=== PATIENT | male | born 1940 | race African-American/Black ===

== ENCOUNTER 2017-07-25 16:31 | Inpatient (IN) | payer MEDICARE, MEDICAID ==
[~2017-07-25] VITALS: Ht 180.3 cm; Wt 105.7 kg
[2017-07-25 18:33] LABS: Basophils # (auto) 0.1 uL; Lymphocytes # (auto) 1.8 uL
[2017-07-25 18:36] LABS: Basophils % (auto) 0.5 % (0.0-2.0); Eosinophils # (auto) 0.2 uL; Eosinophils % (auto) 1.7 % (0.0-7.0); Hematocrit 18.8 % (41.0-53.0); Lymphocytes % (auto) 17.8 % (10.0-50.0); Mean Corpuscular Hemoglobin 19.5 pg (28.0-32.0); Mean Corpuscular Hgb Conc. 27.8 g/dL (32.0-36.0); Mean Corpuscular Volume 70.3 fL (80.0-100.0); Neutrophils # (auto) 6.9 uL; Nucleated Red Blood Cells % 0.4 %; Platelet Count (auto) 308 10^3/uL (140-450); Red Blood Cells 2.67 10^6/uL (4.5-5.90); Red Cell Distribution Width 18.7 % (11.8-14.3); White Blood Cell 9.9 10^3/uL (4.4-10.8)
[2017-07-25 18:48] LABS: Hemoglobin 5.2 g/dL (13.5-17.5)
[2017-07-25 19:04] LABS: Albumin 2.6 g/dL (3.4-5.0); BUN/Creatinine Ratio 19.3; Bilirubin, Total 0.4 mg/dL (0.2-1.0); Calcium 8.2 mg/dL (8.5-10.1); Magnesium 2.8 mg/dL (1.6-2.6); Potassium 4.5 mmol/L (3.5-5.1)
[2017-07-26] VITALS (12 sets, daily range): BP systolic 122–155; BP diastolic 35–110
[2017-07-26] MEDS: SODIUM CHLORIDE 0.9% 1,000 ML IV SCH ×2 (04:54→21:54)
[2017-07-26] MEDS ORDERED: ACETAMINOPHEN 325 MG TAB PO PRN (05:00)
[2017-07-26] MEDS ORDERED: PANTOPRAZOLE 40 MG/10 ML VIAL IV ONE (05:00)
[2017-07-26] MEDS ORDERED: ONDANSETRON HCL 4 MG/2 ML VIAL IV PRN (05:00)
[2017-07-26] MEDS ORDERED: NITROGLYCERIN 0.4 MG SL TAB SL PRN (05:00)
[2017-07-26] MEDS ORDERED: MORPHINE SULFATE 4 MG/ML SYR/VIAL IV PRN (05:00)
[2017-07-26] MEDS ORDERED: TEMAZEPAM 15 MG CAP PO PRN (05:00)
[2017-07-26] MEDS ORDERED: cloNIDine HCL 0.1 MG TAB PO PRN (06:30)
[2017-07-26 09:47] LABS: Hematocrit 24.6 % (41.0-53.0)
[2017-07-26 09:53] LABS: Hemoglobin 6.6 g/dL (13.5-17.5)
[2017-07-26] MEDS: METOPROLOL TARTRATE 25 MG TAB PO SCH ×2 (10:08→21:52)
[2017-07-26] MEDS: amLODIPine BESYLATE 5 MG TAB PO SCH (10:09)
[2017-07-27] VITALS: BP 126/65
[2017-07-27 06:03] LABS: Albumin 2.4 g/dL (3.4-5.0); Bilirubin, Total 1.4 mg/dL (0.2-1.0); Potassium 4.3 mmol/L (3.5-5.1); Total Protein 6.3 g/dL (6.4-8.2)
[2017-07-27 06:45] LABS: Eosinophils # (auto) 0.3 uL
[2017-07-27 06:46] LABS: Basophils # (auto) 0 uL; Basophils % (auto) 0.4 % (0.0-2.0); Eosinophils % (auto) 2.4 % (0.0-7.0); Hematocrit 29.5 % (41.0-53.0); Lymphocytes # (auto) 1.3 uL; Lymphocytes % (auto) 11.1 % (10.0-50.0); Mean Corpuscular Hemoglobin 23.3 pg (28.0-32.0); Mean Corpuscular Hgb Conc. 30.4 g/dL (32.0-36.0); Mean Corpuscular Volume 76.5 fL (80.0-100.0); Monocytes # (auto) 1.3 uL; Monocytes % (auto) 10.8 % (0.0-12.0); Neutrophils # (auto) 8.9 uL; Neutrophils % (auto) 75.3 % (37.0-80.0); Nucleated Red Blood Cells % 0.4 %; Platelet Count (auto) 214 10^3/uL (140-450); Red Blood Cells 3.86 10^6/uL (4.5-5.90); White Blood Cell 11.8 10^3/uL (4.4-10.8)
[2017-07-27 06:49] LABS: Red Cell Distribution Width 22.5 % (11.8-14.3)
[2017-07-27 08:00] VITALS: BP 150/78
[2017-07-27] MEDS: PANTOPRAZOLE 40 MG/10 ML VIAL IV SCH (11:48)
[2017-07-27] MEDS: amLODIPine BESYLATE 5 MG TAB PO SCH (11:49)
[2017-07-27] MEDS: METOPROLOL TARTRATE 25 MG TAB PO SCH ×2 (11:49→21:40)
[2017-07-27 12:00] VITALS: BP 148/72
[2017-07-27] MEDS: SODIUM CHLORIDE 0.9% 1,000 ML IV SCH (14:23)
[2017-07-27 16:00] VITALS: BP 141/88
[2017-07-27 19:54] VITALS: BP 125/65
[2017-07-28] VITALS: BP 130/73
[2017-07-28] MEDS: HYDROcodone-ACET 5/325MG TAB PO PRN ×2 (00:08→21:46)
[2017-07-28 05:49] LABS: Basophils # (auto) 0.1 uL; Basophils % (auto) 0.5 % (0.0-2.0); Eosinophils # (auto) 0.3 uL; Lymphocytes # (auto) 1.4 uL; Nucleated Red Blood Cells % 0.1 %
[2017-07-28 05:52] LABS: Eosinophils % (auto) 2.3 % (0.0-7.0); Hematocrit 27.5 % (41.0-53.0); Hemoglobin 8.6 g/dL (13.5-17.5); Lymphocytes % (auto) 12.2 % (10.0-50.0); Mean Corpuscular Hemoglobin 23.8 pg (28.0-32.0); Mean Corpuscular Hgb Conc. 31.4 g/dL (32.0-36.0); Monocytes # (auto) 1.4 uL; Monocytes % (auto) 12.1 % (0.0-12.0); Neutrophils # (auto) 8.6 uL; Neutrophils % (auto) 72.9 % (37.0-80.0); Platelet Count (auto) 209 10^3/uL (140-450); Red Blood Cells 3.63 10^6/uL (4.5-5.90); White Blood Cell 11.7 10^3/uL (4.4-10.8)
[2017-07-28 05:59] LABS: Red Cell Distribution Width 23.5 % (11.8-14.3)
[2017-07-28 06:30] LABS: BUN/Creatinine Ratio 10.1; Calcium 8.2 mg/dL (8.5-10.1); Potassium 4.2 mmol/L (3.5-5.1)
[2017-07-28 08:00] VITALS: BP 137/92
[2017-07-28] MEDS: SODIUM CHLORIDE 0.9% 1,000 ML IV SCH ×2 (08:55→23:34)
[2017-07-28 09:35] LABS: Carcinoembryonic Antigen < 0.50 ng/mL (<5.0 OR =)
[2017-07-28 09:36] LABS: Folate (Folic Acid) 12.92 ng/mL (5.38-24)
[2017-07-28] MEDS: PANTOPRAZOLE 40 MG/10 ML VIAL IV SCH (10:15)
[2017-07-28] MEDS: amLODIPine BESYLATE 5 MG TAB PO SCH (10:15)
[2017-07-28] MEDS: METOPROLOL TARTRATE 25 MG TAB PO SCH ×2 (10:16→21:46)
[2017-07-28 11:56] VITALS: BP 127/89
[2017-07-28 15:53] VITALS: BP 139/79
[2017-07-28 19:50] VITALS: BP 131/73
[2017-07-28 23:52] VITALS: BP 126/60
[2017-07-29] VITALS (7 sets, daily range): BP systolic 119–146; BP diastolic 65–93
[2017-07-29] MEDS: HYDROcodone-ACET 5/325MG TAB PO PRN (05:13)
[2017-07-29 06:27] LABS: Basophils # (auto) 0 uL; Eosinophils # (auto) 0.4 uL; Hemoglobin 9.8 g/dL (13.5-17.5); Lymphocytes # (auto) 1.5 uL
[2017-07-29 06:30] LABS: Basophils % (auto) 0.2 % (0.0-2.0); Eosinophils % (auto) 3.9 % (0.0-7.0); Hematocrit 31.3 % (41.0-53.0); Lymphocytes % (auto) 15.2 % (10.0-50.0); Mean Corpuscular Hemoglobin 24.1 pg (28.0-32.0); Mean Corpuscular Hgb Conc. 31.5 g/dL (32.0-36.0); Mean Corpuscular Volume 76.7 fL (80.0-100.0); Monocytes # (auto) 1.2 uL; Monocytes % (auto) 12.2 % (0.0-12.0); Neutrophils # (auto) 6.7 uL; Neutrophils % (auto) 68.5 % (37.0-80.0); Platelet Count (auto) 225 10^3/uL (140-450); Red Blood Cells 4.08 10^6/uL (4.5-5.90); White Blood Cell 9.8 10^3/uL (4.4-10.8)
[2017-07-29 06:37] LABS: Red Cell Distribution Width 24.3 % (11.8-14.3)
[2017-07-29 07:12] LABS: Albumin 2.2 g/dL (3.4-5.0); BUN/Creatinine Ratio 8.7; Bilirubin, Total 0.8 mg/dL (0.2-1.0); Calcium 8.3 mg/dL (8.5-10.1); Potassium 4.1 mmol/L (3.5-5.1); Total Protein 6.4 g/dL (6.4-8.2)
[2017-07-29] MEDS ORDERED: ADENOSINE 88 MG in GIVE UN-DILUTED 0 ML IV STA (08:38)
[2017-07-29] MEDS: PANTOPRAZOLE 40 MG/10 ML VIAL IV SCH (09:22)
[2017-07-29] MEDS: METOPROLOL TARTRATE 25 MG TAB PO SCH ×2 (09:23→21:53)
[2017-07-29] MEDS: amLODIPine BESYLATE 5 MG TAB PO SCH (09:23)
[2017-07-29] MEDS: SODIUM CHLORIDE 0.9% 1,000 ML IV SCH (16:41)
[2017-07-30] MEDS: HYDROcodone-ACET 5/325MG TAB PO PRN (00:25)
[2017-07-30] MEDS ORDERED: DONE5TAB31 PO (04:39)
[2017-07-30] MEDS ORDERED: ATEN-60 PO (04:40)
[2017-07-30] MEDS ORDERED: ATOR40TA52 PO (04:40)
[2017-07-30] MEDS ORDERED: MELO1TAB56 PO (04:41)
[2017-07-30] MEDS ORDERED: OMEP20CA74 PO (04:41)
[2017-07-30] MEDS ORDERED: LISI-646 PO (04:42)
[2017-07-30] MEDS ORDERED: DOXE10CA PO (04:42)
[2017-07-30] MEDS ORDERED: GABA300C10 PO (04:43)
[2017-07-30] MEDS ORDERED: ASPI-231 PO (04:43)
[2017-07-30] MEDS ORDERED: CALC0.0013 EX (04:44)
[2017-07-30] MEDS ORDERED: CLOB0.05 TOP (04:44)
[2017-07-30] MEDS ORDERED: KETO2CRE4 TOP (04:44)
[2017-07-30 05:25] VITALS: BP 134/73
[2017-07-30 06:08] LABS: Basophils # (auto) 0 uL; Eosinophils # (auto) 0.3 uL; Neutrophils # (auto) 6.7 uL; Nucleated Red Blood Cells % 0.1 %; White Blood Cell 9.4 10^3/uL (4.4-10.8)
[2017-07-30 06:09] LABS: BUN/Creatinine Ratio 13.8; Potassium 4.2 mmol/L (3.5-5.1)
[2017-07-30 06:12] LABS: Basophils % (auto) 0.5 % (0.0-2.0); Eosinophils % (auto) 3.3 % (0.0-7.0); Hematocrit 29.5 % (41.0-53.0); Lymphocytes # (auto) 1.1 uL; Lymphocytes % (auto) 11.7 % (10.0-50.0); Mean Corpuscular Hemoglobin 23.7 pg (28.0-32.0); Mean Corpuscular Hgb Conc. 30.6 g/dL (32.0-36.0); Mean Corpuscular Volume 77.4 fL (80.0-100.0); Monocytes # (auto) 1.3 uL; Monocytes % (auto) 13.4 % (0.0-12.0); Neutrophils % (auto) 71.1 % (37.0-80.0); Platelet Count (auto) 229 10^3/uL (140-450); Red Blood Cells 3.81 10^6/uL (4.5-5.90)
[2017-07-30 06:21] LABS: Red Cell Distribution Width 24.7 % (11.8-14.3)
[2017-07-30] MEDS: SODIUM CHLORIDE 0.9% 1,000 ML IV SCH (08:54)
[2017-07-30 09:00] VITALS: BP 152/101
[2017-07-30] MEDS: amLODIPine BESYLATE 5 MG TAB PO SCH (10:00)
[2017-07-30] MEDS: METOPROLOL TARTRATE 25 MG TAB PO SCH ×2 (10:00→21:43)
[2017-07-30] MEDS: PANTOPRAZOLE 40 MG/10 ML VIAL IV SCH (10:01)
[2017-07-30] MEDS: BOOST PLUS 8 ounce PO SCH ×2 (12:00→18:00)
[2017-07-30 13:00] VITALS: BP 103/59
[2017-07-30] MEDS ORDERED: DOBUTamine 1000MCG/ML 250 ML IV ONE (14:45)
[2017-07-30 15:45] VITALS: BP 136/81
[2017-07-30] MEDS ORDERED: ATROPINE SULF 0.5 MG/5ML SYR ONE (15:57)
[2017-07-30 17:34] VITALS: BP 138/72
[2017-07-30 22:00] VITALS: BP 133/77
[2017-07-31] MEDS: SODIUM CHLORIDE 0.9% 1,000 ML IV SCH ×2 (03:39→22:11)
[2017-07-31] MEDS: HYDROcodone-ACET 5/325MG TAB PO PRN ×3 (04:21→15:21)
[2017-07-31 05:07] VITALS: BP 172/83
[2017-07-31 05:57] LABS: Basophils # (auto) 0 uL; Eosinophils # (auto) 0.3 uL; Hemoglobin 9.3 g/dL (13.5-17.5)
[2017-07-31 06:01] LABS: Basophils % (auto) 0.3 % (0.0-2.0); Eosinophils % (auto) 3.2 % (0.0-7.0); Hematocrit 30.8 % (41.0-53.0); Lymphocytes # (auto) 1.2 uL; Lymphocytes % (auto) 12.7 % (10.0-50.0); Mean Corpuscular Hemoglobin 23.5 pg (28.0-32.0); Mean Corpuscular Hgb Conc. 30.2 g/dL (32.0-36.0); Mean Corpuscular Volume 77.8 fL (80.0-100.0); Monocytes # (auto) 1.4 uL; Monocytes % (auto) 15.3 % (0.0-12.0); Neutrophils # (auto) 6.3 uL; Neutrophils % (auto) 68.5 % (37.0-80.0); Nucleated Red Blood Cells % 0.1 %; Platelet Count (auto) 235 10^3/uL (140-450); Red Blood Cells 3.96 10^6/uL (4.5-5.90); White Blood Cell 9.1 10^3/uL (4.4-10.8)
[2017-07-31 06:16] LABS: Potassium 4.1 mmol/L (3.5-5.1)
[2017-07-31 06:19] LABS: BUN/Creatinine Ratio 12.6
[2017-07-31 06:22] LABS: Red Cell Distribution Width 24.8 % (11.8-14.3)
[2017-07-31] MEDS: MORPHINE SULFATE 4 MG/ML SYR/VIAL IV PRN ×2 (08:00→12:00)
[2017-07-31 09:04] VITALS: BP 137/77
[2017-07-31] MEDS: PANTOPRAZOLE 40 MG/10 ML VIAL IV SCH (09:54)
[2017-07-31] MEDS: METOPROLOL TARTRATE 25 MG TAB PO SCH ×2 (09:55→22:14)
[2017-07-31] MEDS: amLODIPine BESYLATE 5 MG TAB PO SCH (09:58)
[2017-07-31] MEDS: BOOST PLUS 8 ounce PO SCH ×3 (12:12→19:00)
[2017-07-31] MEDS: LACTULOSE 20Gm/30ML SOLN PO SCH (12:14)
[2017-07-31 13:00] VITALS: BP 130/44
[2017-07-31] MEDS ORDERED: GOLYTELY 4L KIT PO ONE (14:15)
[2017-07-31 16:20] LABS: INR 1.05 (0.9-1.15); Partial Thromboplastin Time 27.8 sec (22.64-33.71); Prothrombin Time 11.4 sec (9.37-12.3)
[2017-07-31 17:00] VITALS: BP 140/91
[2017-07-31 23:16] VITALS: BP 150/79
[2017-08-01] MEDS: HYDROcodone-ACET 5/325MG TAB PO PRN (04:30)
[2017-08-01 05:25] VITALS: BP 154/74
[2017-08-01] MEDS: LACTULOSE 20Gm/30ML SOLN PO SCH ×5 (05:55→18:00)
[2017-08-01 06:18] LABS: Calcium 8.7 mg/dL (8.5-10.1)
[2017-08-01 06:20] LABS: BUN/Creatinine Ratio 12.5
[2017-08-01 07:45] LABS: Basophils # (auto) 0.1 uL; Mean Corpuscular Hemoglobin 23.7 pg (28.0-32.0)
[2017-08-01 07:47] LABS: Basophils % (auto) 0.7 % (0.0-2.0); Eosinophils # (auto) 0.5 uL; Eosinophils % (auto) 4.7 % (0.0-7.0); Hematocrit 30.6 % (41.0-53.0); Hemoglobin 9.5 g/dL (13.5-17.5); Lymphocytes # (auto) 1.2 uL; Lymphocytes % (auto) 12.8 % (10.0-50.0); Mean Corpuscular Hgb Conc. 30.9 g/dL (32.0-36.0); Mean Corpuscular Volume 76.8 fL (80.0-100.0); Monocytes # (auto) 1.2 uL; Monocytes % (auto) 12.3 % (0.0-12.0); Neutrophils # (auto) 6.7 uL; Neutrophils % (auto) 69.5 % (37.0-80.0); Platelet Count (auto) 231 10^3/uL (140-450); Red Blood Cells 3.99 10^6/uL (4.5-5.90); White Blood Cell 9.6 10^3/uL (4.4-10.8)
[2017-08-01] MEDS: BOOST PLUS 8 ounce PO SCH ×3 (08:00→18:29)
[2017-08-01] MEDS ORDERED: NALOXONE HCL 0.4 MG/ML VIAL ONE (08:44)
[2017-08-01] MEDS ORDERED: FLUMAZENIL 0.1 MG/ML INJ 10ML MDV IV ONE (08:44)
[2017-08-01] MEDS ORDERED: LIDOCAINE VISCOUS 2% 15ML UD ONE (08:44)
[2017-08-01] MEDS ORDERED: diphenhdrAMINE HCL 50 MG/1 ML VL ONE (08:45)
[2017-08-01 09:00] VITALS: BP 143/71
[2017-08-01] MEDS: METOPROLOL TARTRATE 25 MG TAB PO SCH ×2 (09:25→22:21)
[2017-08-01] MEDS: PANTOPRAZOLE 40 MG/10 ML VIAL IV SCH (09:26)
[2017-08-01] MEDS: amLODIPine BESYLATE 5 MG TAB PO SCH (09:26)
[2017-08-01] MEDS: fentaNYL CITRATE 100 MCG/2 ML VL ONE ×2 (10:00→10:06)
[2017-08-01] MEDS: MIDAZOLAM HCL 5 MG/ML-1ML VIAL ONE ×2 (10:00→10:06)
[2017-08-01] MEDS: SODIUM CHLORIDE 0.9% 1,000 ML IV SCH (10:54)
[2017-08-01 13:00] VITALS: BP 138/66
[2017-08-01 16:53] VITALS: BP 138/91
[2017-08-01 22:00] VITALS: BP 154/69
[2017-08-01] MEDS: PANTOPRAZOLE 40 MG TAB PO SCH (22:20)
[2017-08-02 05:26] VITALS: BP 156/94
[2017-08-02] MEDS: LACTULOSE 20Gm/30ML SOLN PO SCH ×3 (06:00→12:00)
[2017-08-02 07:02] LABS: Hemoglobin 9.4 g/dL (13.5-17.5)
[2017-08-02 09:00] VITALS: BP 165/89
[2017-08-02] MEDS ORDERED: FUROSEMIDE 40 MG/4 ML VIAL IV ONE (09:30)
[2017-08-02] MEDS ORDERED: POTASSIUM CHL 20 Meq TABLET PO ONE (09:30)
[2017-08-02] MEDS ORDERED: PANT40T PO (09:31)
[2017-08-02] MEDS ORDERED: AML5T PO (09:31)
[2017-08-02] MEDS: amLODIPine BESYLATE 5 MG TAB PO SCH (09:55)
[2017-08-02] MEDS: BOOST PLUS 8 ounce PO SCH ×2 (09:55→12:00)
[2017-08-02] MEDS: PANTOPRAZOLE 40 MG TAB PO SCH (09:56)
[2017-08-02] MEDS: METOPROLOL TARTRATE 25 MG TAB PO SCH (09:56)
[2017-08-02 13:00] VITALS: BP 132/70
[2017-08-02 16:34] VITALS: BP 130/73
== END 2017-08-02 17:48 | disposition home health service (06) | DRG 377 ==
LOC: ER 16:31 → OVERFLOW 16:32 → DOU IN ICU 07-26 15:55 → TELE-CENTR 07-29 20:20
PROVIDERS: ADMIT Nurse Practitioner; ATTEND Internal Medicine
PROC: 30233N1 Transfusion of Nonautologous Red Blood Cells into Peripheral Vein, Percutaneous Approach (ICD-10-PCS; principal; 2017-07-26)
PROC: 0DJD8ZZ Inspection of Lower Intestinal Tract, Via Natural or Artificial Opening Endoscopic (ICD-10-PCS; 2017-08-01)
PROC: 0DJ08ZZ Inspection of Upper Intestinal Tract, Via Natural or Artificial Opening Endoscopic (ICD-10-PCS; 2017-08-01 09:57)
DX: K25.4 Chronic or unspecified gastric ulcer with hemorrhage (principal); E43 Unspecified severe protein-calorie malnutrition; I21.A1 Myocardial infarction type 2; N17.0 Acute kidney failure with tubular necrosis; I50.9 Heart failure, unspecified; G62.9 Polyneuropathy, unspecified; D50.0 Iron deficiency anemia secondary to blood loss (chronic); E86.0 Dehydration; E44.0 Moderate protein-calorie malnutrition; F03.90 Unspecified dementia, unspecified severity, without behavioral disturbance, psychotic disturbance, mood disturbance, and anxiety; E66.9 Obesity, unspecified; K44.9 Diaphragmatic hernia without obstruction or gangrene; K64.8 Other hemorrhoids; K20.9 Esophagitis, unspecified; R74.8 Abnormal levels of other serum enzymes; I44.0 Atrioventricular block, first degree; N28.9 Disorder of kidney and ureter, unspecified; Z68.32 Body mass index [BMI] 32.0-32.9, adult; Z86.73 Personal history of transient ischemic attack (TIA), and cerebral infarction without residual deficits; I13.10 Hypertensive heart and chronic kidney disease without heart failure, with stage 1 through stage 4 chronic kidney disease, or unspecified chronic kidney disease; N18.3 Chronic kidney disease, stage 3 (moderate)
CPT/HCPCS: 36415; 43235; 45378; 71045; 74176; 78452; 80048; 80053; 82378; 82607; 82746; 83735; 83880; 84484; 85014; 85018; 85025; 85610; 85730; 86850; 86900; 86901; 86920; 87081; 93005; 93017; 93306; 96361; 96374; 96375; C9113; G0378; J0153; J0461; J2250; J7042